=== PATIENT | male | born 1965 | race Caucasian/White ===

== ENCOUNTER 2022-12-03 06:38 | Outpatient (CLI) | payer MEDICAID ==
[~2022-12-03] VITALS: Ht 180.3 cm; Wt 118.4 kg
[~2022-12-03 06:38] MED LIST: CPR500T PO; FENO145T2 PO; FERR325C PO; HYDR-229 PO; HYDR25SU28 RC; IRON PO; LISI-556 PO; LISI2.5T56 PO; METF1000 PO; MTF500T PO; OMEG1CAP51 PO; OXYC1TAB87 PO; SIMV20TA3 PO; SITA100T PO
== END 2022-12-03 08:30 | disposition home or self-care (01) ==
LOC: PREOP 06:38
PROVIDERS: ATTEND Surgery
DX: Z01.818 Encounter for other preprocedural examination (principal)

== ENCOUNTER 2022-12-09 13:02 | Day surgery (SDC) | payer MEDICAID ==
[~2022-12-09] VITALS: Ht 180.3 cm; Wt 118.4 kg
[2022-12-09] MEDS ORDERED: LACTATED RINGERS 1,000 ML IV STA (13:05)
[2022-12-09 13:35] VITALS: BP 150/110
--- NOTE | 2022-12-09 13:57 | Progress Note-Pre Operative ---
Pre-Operative Progress Note Date of Available H&P: Dec 01, 2022 Date H&P Reviewed: Dec 09, 2022 Time H&P Reviewed: 13:57 History & Physical: H&P Reviewed, Patient Examed, No changes noted Pre-Operative Diagnosis: hx of colorectal cancer ANIRUDH FELICIANO DO Dec 09, 2022 13:57
[2022-12-09] MEDS ORDERED: METF-397 PO (14:01)
[2022-12-09] MEDS ORDERED: ALLO100T PO (14:01)
[2022-12-09] MEDS ORDERED: GABA-490 PO (14:01)
[2022-12-09] MEDS ORDERED: OXYC10TA7 PO (14:01)
[2022-12-09] MEDS ORDERED: MULT-593 PO (14:01)
[2022-12-09] MEDS ORDERED: ONDA-106 PO (14:01)
[2022-12-09] MEDS ORDERED: PANT40TA52 PO (14:01)
[2022-12-09] MEDS ORDERED: OMEG-85 PO (14:01)
[2022-12-09] MEDS ORDERED: NAPR220C11 PO (14:01)
[2022-12-09] MEDS ORDERED: AMLO10TA4 PO (14:01)
[2022-12-09] MEDS ORDERED: LOPE-175 PO (14:01)
[2022-12-09] MEDS ORDERED: METO-333 PO (14:01)
[2022-12-09] MEDS ORDERED: NALO4SPR NS (14:01)
[2022-12-09] MEDS ORDERED: LISI40TA9 PO (14:01)
[2022-12-09] MEDS ORDERED: MECO10005 PO (14:01)
[2022-12-09] MEDS ORDERED: MORP60TA28 PO (14:01)
[2022-12-09] MEDS ORDERED: PROPOFOL INJECTION 50 ML IV ONE (16:27)
[2022-12-09] MEDS ORDERED: proPOfol 200 MG/20 ML (DIPRIVAN) VIAL IV ONE ×3 (16:56→17:24)
[2022-12-09 17:35] VITALS: BP 138/85
--- NOTE | 2022-12-09 17:39 | Anesthesia-General Post-Op ---
MAC Patient Condition Mental Status/LOC: Same as Preop Cardiovascular: Satisfactory Nausea/Vomiting: Absent Respiratory: Satisfactory Pain: Controlled Complications: Absent Post Op Complications Complications None Follow Up Care/Instructions Patient Instructions None needed. Anesthesiology Discharge Order Discharge Order Patient is doing well, no complaints, stable vital signs, no apparent adverse anesthesia problems. No complications reported per nursing. NELIDA SAINZ CRNA Dec 09, 2022 17:39
--- NOTE | 2022-12-09 17:51 | Discharge Inst-Simple/Standard ---
Discharge Inst-Standard Patient Instructions/Follow Up Plan of Care/Instructions/FU: 2 weeks [place] Activity as Tolerated: Yes Discharge Diet: Regular Diet ANIRUDH FELICIANO DO Dec 09, 2022 17:51
[2022-12-09 18:10] VITALS: BP 138/85
[2022-12-09 18:11] VITALS: BP 138/85
--- NOTE | 2022-12-10 01:58 | OPERATIVE REPORT ---
DATE OF SERVICE: 12/09/2022 PREOPERATIVE DIAGNOSES: 1. History of colorectal cancer. 2. Stage IV colon cancer. POSTOPERATIVE DIAGNOSES: 1. Colon polyps, diverticulosis, rectal mass. 2. Stage IV colon cancer. PROCEDURES: Colonoscopy with hot biopsy polypectomy x4 and snare polypectomy x6 and cold biopsies of rectal mass. SURGEON: Anirudh Farooq DO. ANESTHESIA: Per ALUMINIZER. ESTIMATED BLOOD LOSS: None. COMPLICATIONS: None. INDICATIONS: The patient is a 57-year-old male, needing colonoscopy. He has history of colorectal cancer where he has a colostomy. He understands risks and benefits of procedure and wishes to proceed. Consent was signed and in chart. DESCRIPTION OF PROCEDURE: The patient was taken to the endoscopy suite and placed in supine position. A timeout was performed. Scope was inserted into the colostomy and advanced all the way to the cecum. Two polyps were present within the cecum. Hot biopsy polypectomy was performed. The ileocecal valve was intubated. No polyps, masses, or ulcerations within the cecum. Scope was retracted back into the colon and then slowly retracted back. In the ascending colon, there were two other small polyps, which hot biopsy polypectomies were performed. In the ascending colon, there were also four polyps, which snare polypectomy was performed. The scope was slowly retracted out of the colostomy. Digital rectal exam was performed noting the anus to be slightly strictured. The scope was able to be inserted. A large amount of stool and mucus present, which very firm. Had to disimpact the rectum, which large portion of it was not able to be removed. The scope was then inserted into the rectum again and then was able to be advanced over the stool load and continued to be advanced to approximately 80 cm where the staple line was present. Lots of diverticulosis present. Scope was then continued slowly, retracted back. Two larger polyps present in the descending colon, which snare polypectomies were performed and these were obtained for specimen. No other polyps, masses or ulcerations visualized within the remainder of the descending and sigmoid colon. At the rectum at approximately 15 cm larger, there is a rectal mass with a lot of stool around this area [ ] irrigation and suction was used and able to have some better visualization. Multiple cold biopsies were obtained. Scope was then slowly retracted back until completely remove noting no other pathology, but poor visualization of the rectum due to the significant stool, though that could be evacuated. RECOMMENDATIONS: The patient will follow up on pathology in 2 weeks. We would recommend repeating colonoscopy in 3 months to reevaluate the cecum and ascending colon. There was 1 polyp that was more flat to make sure it has been eradicated. Also to follow up on the rectum, which we would likely try doing multiple enemas in order to further evacuate this better. Job ID: [id number] DocumentID: [id number] Dictated Date: 12/09/2022 17:56:45 Hotel Recreational Facilities Manager Date: 12/10/2022 01:57:00 Dictated By: ANIRUDH FAROOQ DO
== END 2022-12-09 18:11 | disposition home or self-care (01) ==
LOC: ENDO 13:02
PROVIDERS: ATTEND Surgery
DX: Z12.11 Encounter for screening for malignant neoplasm of colon (principal); D12.0 Benign neoplasm of cecum; D12.8 Benign neoplasm of rectum; D12.4 Benign neoplasm of descending colon; D12.2 Benign neoplasm of ascending colon; R97.0 Elevated carcinoembryonic antigen [CEA]; K57.30 Diverticulosis of large intestine without perforation or abscess without bleeding; E66.9 Obesity, unspecified; Z68.36 Body mass index [BMI] 36.0-36.9, adult; E11.40 Type 2 diabetes mellitus with diabetic neuropathy, unspecified; Z85.038 Personal history of other malignant neoplasm of large intestine; Z79.84 Long term (current) use of oral hypoglycemic drugs
CPT/HCPCS: 82947; 88305

== ENCOUNTER 2022-12-19 09:11 | Outpatient (CLI) | payer MEDICAID ==
[~2022-12-19] VITALS: Ht 180.3 cm; Wt 118.4 kg
[~2022-12-19 09:11] MED LIST changes: +ALLO100T PO; +AMLO10TA4 PO; +GABA-490 PO; +LISI40TA9 PO; +LOPE-175 PO; +MECO10005 PO; +METF-397 PO; +METO-333 PO; +MORP60TA28 PO; +MULT-593 PO; +NALO4SPR NS; +NAPR220C11 PO; +OMEG-85 PO; +ONDA-106 PO; +OXYC10TA7 PO; +PANT40TA52 PO
== END 2022-12-19 12:51 | disposition home or self-care (01) ==
LOC: PREOP 09:11
PROVIDERS: ATTEND Surgery
DX: Z01.818 Encounter for other preprocedural examination (principal)

== ENCOUNTER 2022-12-23 12:16 | Day surgery (SDC) | payer MEDICAID ==
[~2022-12-23] VITALS: Ht 180 cm; Wt 118.4 kg
[2022-12-23] MEDS ORDERED: LACTATED RINGERS 1,000 ML IV STA (12:21)
[2022-12-23 12:45] VITALS: BP 133/86
[2022-12-23] MEDS ORDERED: LACTATED RINGERS 1,000 ML IV ONE (12:51)
--- NOTE | 2022-12-23 13:03 | Progress Note-Pre Operative ---
Pre-Operative Progress Note Date of Available H&P: Dec 17, 2022 Date H&P Reviewed: Dec 23, 2022 Time H&P Reviewed: 13:02 History & Physical: H&P Reviewed, Patient Examed, No changes noted Pre-Operative Diagnosis: Rectal Polyps ANIRUDH FELICIANO DO Dec 23, 2022 13:03
[2022-12-23] MEDS ORDERED: PROPOFOL INJECTION 50 ML IV ONE (13:18)
[2022-12-23] MEDS ORDERED: proPOfol 200 MG/20 ML (DIPRIVAN) VIAL IV ONE (14:06)
[2022-12-23 14:10] VITALS: BP 116/69
[2022-12-23 14:15] VITALS: BP 118/69
--- NOTE | 2022-12-23 14:16 | Discharge Inst-Simple/Standard ---
Discharge Inst-Standard Patient Instructions/Follow Up Plan of Care/Instructions/FU: 2 weeks [place] Activity as Tolerated: Yes Discharge Diet: No Restrictions ANIRUDH FELICIANO DO Dec 23, 2022 14:16
--- NOTE | 2022-12-23 14:19 | Progress Note-Post Operative ---
Post-Operative Progess Note Surgeon (s)/Day Guard (s) Surgeon ANIRUDH FELICIANO DO Day Guard: N/A Pre-Operative Diagnosis Rectal Polyps Post-Operative Diagnosis Large Rectal Polyps Procedure & Operative Findings Date of Procedure 12/23/22 Procedure Performed/Findings Flex Sig Snare Polypectomy and Celina Inking Anesthesia Type per BINDERY PRODUCTION MANAGER Estimated Blood Loss Estimated blood loss (mL): None Specimens/Packing Specimens Removed Rectal Polyp ANIRUDH FELICIANO DO Dec 23, 2022 14:19
[2022-12-23 14:20] VITALS: BP 126/73
--- NOTE | 2022-12-23 14:34 | Anesthesia-General Post-Op ---
MAC Patient Condition Mental Status/LOC: Same as Preop Cardiovascular: Satisfactory Nausea/Vomiting: Absent Respiratory: Satisfactory Pain: Controlled Complications: Absent Post Op Complications Complications None Follow Up Care/Instructions Patient Instructions None needed. Anesthesiology Discharge Order Discharge Order Patient is doing well, no complaints, stable vital signs, no apparent adverse anesthesia problems. No complications reported per nursing. BEKAH ACOSTA CRNA Dec 23, 2022 14:34
[2022-12-23 14:40] VITALS: BP 126/73
--- NOTE | 2022-12-23 19:02 | OPERATIVE REPORT ---
DATE OF SERVICE: 12/23/2022 PREOPERATIVE DIAGNOSIS: Rectal polyp. POSTOPERATIVE DIAGNOSIS: Large rectal polyp. PROCEDURE: Flexible sigmoidoscopy with snare polypectomy and Celina inking. SURGEON: Anirudh Farooq DO. ANESTHESIA: Per PAYMENT ANALYST. ESTIMATED BLOOD LOSS: None. COMPLICATIONS: None. INDICATIONS: The patient is a 57-year-old male with a rectal mass/polyp in the rectum, but due to a large stool burden in the rectal vault, unable to visualize adequately and unable to evacuate the stool. The patient has been doing enemas trying to evacuate the stool burden, has not had much success. However, we discussed attempting and he wishes to proceed. Consent was signed in chart. DESCRIPTION OF PROCEDURE: The patient was taken to the endoscopy suite, placed in left lateral recumbent position. Timeout was performed. Digital rectal exam was performed. A very tight stricture at the anus. Index finger was able to be used to slightly dilate the area. The scope was then inserted, still fairly significant stool burden present. Scope was inserted in the rectum, advanced through the rectum into the sigmoid, noting no other pathology. Scope was slowly retracted back, noting the large rectal polyp. I was able to see it in its entirety at this time with good visualization. Piecemeal snare polypectomy was performed. This was placed in a [employer] and removed through the anus. Scope was reinserted and any small pieces were suctioned up and sent for pathology as well. Just distal to the area of the polyp, 1 mL in 2 locations of Celina ink for a total of 2 mL was tattooed. Scope was then slowly retracted until completely removed. RECOMMENDATIONS: The patient will follow up on pathology in 2 weeks. Any issues before that be seen at that time. We will need repeat colonoscopy through the colostomy in approximately 3 months to reevaluate that portion of the colon. Job ID: [id number] DocumentID: [id number] Dictated Date: 12/23/2022 14:31:22 Digital Print Operator Date: 12/23/2022 19:00:00 Dictated By: ANIRUDH FAROOQ DO
== END 2022-12-23 14:45 | disposition home or self-care (01) ==
LOC: ENDO 12:16
PROVIDERS: ATTEND Surgery
DX: Z09 Encounter for follow-up examination after completed treatment for conditions other than malignant neoplasm (principal); D12.8 Benign neoplasm of rectum; C18.9 Malignant neoplasm of colon, unspecified; E66.9 Obesity, unspecified; Z68.36 Body mass index [BMI] 36.0-36.9, adult; Z90.49 Acquired absence of other specified parts of digestive tract; Z93.3 Colostomy status; K57.30 Diverticulosis of large intestine without perforation or abscess without bleeding; D12.2 Benign neoplasm of ascending colon
CPT/HCPCS: 82947